=== PATIENT | female | born 1955 | race Caucasian/White ===

== ENCOUNTER 2024-03-30 18:25 | Outpatient (CLI) | payer MEDICARE, OTHER, SELFPAY | END 2024-03-30 18:26 | disposition home or self-care (01) | LOC: NFLDREF 04-01 07:23 | PROVIDERS: PCP Physician Assistant; Visit Provider Physician Assistant | DX: N39.0 Urinary tract infection, site not specified (principal); B96.20 Unspecified Escherichia coli [E. coli] as the cause of diseases classified elsewhere | CPT/HCPCS: 87086; 87186 ==